=== PATIENT | female | born 2000 | race Hispanic/Latino ===

== ENCOUNTER 2022-05-17 20:38 | Emergency (ER) | payer BC | END 2022-05-17 22:06 | disposition home or self-care (01) | LOC: ERS 20:38 | DX: M25.512 Pain in left shoulder (principal) | CPT/HCPCS: 72072 ==

== ENCOUNTER 2023-02-03 10:41 | Outpatient (CLI) | payer BC | END 2023-02-03 10:42 | disposition home or self-care (01) | LOC: BICULT 10:41 | PROVIDERS: ATTEND Obstetrics & Gynecology | DX: N63.23 Unspecified lump in the left breast, lower outer quadrant (principal) ==

== ENCOUNTER → 2023-02-17 | Day surgery (SDC) | payer BC | LOC: BICULT 12:01 | PROVIDERS: ATTEND Obstetrics & Gynecology | PROC: 0H9U3ZX Drainage of Left Breast, Percutaneous Approach, Diagnostic (ICD-10-PCS; principal; 2023-02-17) | DX: D24.2 Benign neoplasm of left breast (principal) | CPT/HCPCS: 19083; 88305 ==